=== PATIENT | male | born 1965 | race Caucasian/White ===

== ENCOUNTER 2021-01-06 16:16 | Emergency (ER) | payer OTHER ==
[~2021-01-06] VITALS: Ht 193 cm; Wt 108.9 kg
[2021-01-06 16:40] VITALS: BP 151/75
[2021-01-06 20:25] VITALS: BP 139/77
--- NOTE | 2021-01-06 21:37 | NUR ---
Patient discharged with v/s stable. Written and verbal after care instructions given and explained. Patient verbalized understanding. Ambulatory with steady gait. All questions addressed prior to discharge. Advised to follow up with PMD.
== END 2021-01-06 21:37 | disposition home or self-care (01) ==
LOC: MED 16:16
DX: S52.612A Displaced fracture of left ulna styloid process, initial encounter for closed fracture (principal); S61.512A Laceration without foreign body of left wrist, initial encounter; W26.8XXA Contact with other sharp object(s), not elsewhere classified, initial encounter; Y93.89 Activity, other specified; Y92.89 Other specified places as the place of occurrence of the external cause; Y99.0 Civilian activity done for income or pay
CPT/HCPCS: 12001; 73110; 90471; 90715; 99283

== ENCOUNTER 2021-10-15 17:37 | Emergency (ER) | payer OTHER ==
[~2021-10-15] VITALS: Ht 190.5 cm; Wt 122.5 kg
[2021-10-15 18:04] VITALS: BP 162/80
--- NOTE | 2021-10-15 18:08 | NUR ---
PT TO LOBBY.
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
--- NOTE | 2021-10-15 18:23 | NUR ---
PT TO EDIN Parry
--- NOTE | 2021-10-15 18:56 | NUR ---
PT TAKEN TO XR VIA W/C.
[2021-10-15] MEDS ORDERED: KETOROLAC 60 MG/2 ML VIAL IM ONE (19:35)
[2021-10-15] MEDS: KETOROLAC 60 MG/2 ML VIAL IM ONE (19:39)
--- NOTE | 2021-10-15 19:40 | NUR ---
PT MEDICATED PER ORDERS.
[2021-10-15] MEDS ORDERED: IBUP-2213 PO (20:04)
[2021-10-15] MEDS ORDERED: ACET-8386 PO (20:04)
[2021-10-15 20:10] VITALS: BP 156/82
--- NOTE | 2021-10-15 20:10 | NUR ---
Patient discharged with v/s stable. Written and verbal after care instructions given ACUTE BACK and explained. Patient alert, oriented and verbalized understanding of instructions. Ambulatory with steady gait. All questions addressed prior to discharge. ID band removed. Patient advised to follow up with PMD. Rx of IBUPROFEN AND HYDREOCODON-ACETAMINOPHEN given. Patient educated on indication of medication including possible reaction and side effects. Opportunity to ask questions provided and answered.
== END 2021-10-15 20:10 | disposition home or self-care (01) ==
LOC: MED 17:37
DX: S13.4XXA Sprain of ligaments of cervical spine, initial encounter (principal); Z98.890 Other specified postprocedural states; V49.88XA Car occupant (driver) (passenger) injured in other specified transport accidents, initial encounter; Y93.89 Activity, other specified; Y92.89 Other specified places as the place of occurrence of the external cause; Y99.8 Other external cause status
CPT/HCPCS: 72040; 72100; 96372; 99284; J1885